=== PATIENT | female | born 1930 | race Caucasian/White ===

== ENCOUNTER 2017-05-21 15:21 | Inpatient (IN) | payer MEDICARE ==
[2017-05-21] MEDS ORDERED: Aspirin Low Dose CHEW TAB* 81 MG PO ONE (16:17)
[2017-05-21] MEDS ORDERED: NS 0.9% 1000 ML* 1,000 ML IV ONE (16:17)
--- NOTE | 2017-05-21 17:04 | RAD ---
Indication: Shortness of breath. Single frontal view of the chest performed at 1640 hours was reviewed. No prior study is available. No mediastinal shift is noted. Heart is of normal size and configuration. Lung east appear clear. Pacemaker leads are in place. There is likely interposed colon under the right hemidiaphragm. IMPRESSION: NO ACTIVE CARDIOPULMONARY DISEASE IS NOTED.
[2017-05-21 19:28] LABS: Hematocrit 35 % (35-47); Hemoglobin 11.4 g/dl (12.0-16.0); Mean Corpuscular HGB Conc 33 g/dl (31-36); Mean Corpuscular Hemoglobin 31 pg (27-31); Mean Corpuscular Volume 95 fL (80-97); Mean Platelet Volume 7 um3 (7.4-10.4); Red Blood Count 3.69 10^6/ul (4.0-5.4); Red Cell Distribution Width 18 % (10.5-15); White Blood Count 9.4 10^3/ul (3.5-10.8)
[2017-05-21 19:44] LABS: Albumin 3.1 g/dL (3.2-5.2); BUN/Creatinine Ratio 28.7 (8-20); Calcium 9.7 mg/dL (8.6-10.3); EGFR African American 72.1 (>60); EGFR Non-African American 56.1 (>60); Globulin 2.8 g/dL (2-4); Potassium 3.2 mmol/L (3.5-5.0); Total Bilirubin 1.1 mg/dL (0.2-1.0); Total Protein 5.9 g/dL (6.4-8.9)
[2017-05-21 19:48] LABS: Troponin I 0.05 ng/mL (<0.04)
[2017-05-21 20:11] LABS: Erythrocyte Sed Rate 16 mm/Hr (0-40)
[2017-05-21 20:17] LABS: TSH (Thyroid Stimulating Horm) 14.01 mcIU/mL (0.34-5.60)
[2017-05-21 20:29] LABS: C Reactive Protein 22.02 mg/L (< 5.00)
[2017-05-21] MEDS ORDERED: Potassium Chloride LIQUID* 20 MEQ PACKET PO ONE (20:56)
[2017-05-21] MEDS ORDERED: Ondansetron INJ* 2 MG/ML VIAL IV PRN (21:12)
[2017-05-21] MEDS ORDERED: Acetaminophen TAB* 325 MG PO PRN (21:12)
[2017-05-21 21:31] LABS: Free T3 2.9 pg/mL (2.5-3.9)
[2017-05-21 21:32] LABS: Free T4 0.6 ng/dL (0.61-1.12)
--- NOTE | 2017-05-21 23:21 | ED ---
Eli Reyes Seung-Jae, scribed for Nathalie Sofia MD on 05/21/17 at 1727 . Complex/Multi-Sys Presentation - HPI Summary HPI Summary: An 87 y/o F presents to ED with c/o worsening weakness onset s/p RLE surgery on 01/20/17. Pt had broken femur, had sravanthi replacement. Released from rehab on . Per family, pt has "gone downhill since" surgery. Pt lives in [place], was driven to [place] yesterday to live with family while she recoups. Pt ambulated with a walker before femur break. This AM, pt was seen by visiting nurse, who noted hypoxia, low blood sugar, low pulse, and bilat pedal edema with weeping on LLE. Family spoke to Dr. Babcock, referred them to ED. Pt denies pain, n/v, fever at bedside. 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 PMHx: CHF, Lyme's Disease, and hypotension. - History Of Current Complaint Chief Complaint: EDWeakness Hx Obtained From: Patient, Family/Ditch Worker - son and daughter in law Onset/Duration: Gradual Onset, Lasting Days - worse since yesterday, Lasting Weeks - acute on chronic, Still Present Timing: Constant Severity Currently: Moderate Severity Initially: Severe Character: Unable To Describe Alleviating Factor(s): Leg edema improved with raising of leg. Associated Signs And Symptoms: Positive: Weakness, SOB, Edema, Other - see HPI for pert pos. Negative: Nausea, Vomiting, Fever Related History: Recent Hospitalization - Allergies/Home Medications Allergies/Adverse Reactions: Allergies Allergy/AdvReac Type Severity Reaction Status Date / Time Penicillins Allergy Rash And Verified 05/21/17 15:32 Itching Home Medications: Home Medications Bupropion XL* [Wellbutrin XL *] 150 mg PO DAILY 05/21/17 [History Confirmed 05/02] Coenzyme Q10 (Ubidecarenone) [Co-Enzyme Q-10] 30 mg PO 05/21/17 [History] Liothyronine TAB* [Cytomel TAB*] 5 mcg PO BID 05/21/17 [History Confirmed ] Mirtazapine TAB* [Remeron TAB*] 15 mg PO BEDTIME 05/21/17 [History Confirmed 05/02] Ranitidine HCl 300 mg PO 05/21/17 [History] Rivaroxaban TAB(*) [Xarelto 10 mg (*)] 05/21/17 [History] Spironolactone TAB* [Aldactone TAB*] 25 mg PO SEE INSTRUCTIONS 05/21/17 [ History Confirmed 05/21/17] PMH/Surg Hx/FS Hx/Imm Hx Previously Healthy: No Endocrine/Hematology History: Reports: Hx Thyroid Disease - hypothyroid Cardiovascular History: Reports: Hx Congestive Heart Failure, Hx Hypotension GI History: Reports: Hx Gastroesophageal Reflux Disease Psychiatric History: Reports: Hx Depression - Cancer History Cancer Type, Location and Year: Breast Cancer - Surgical History Surgery Procedure, Year, and Place: Right Knee replaced. Infectious Disease History: No Infectious Disease History: Reports: History Other Infectious Disease - Lyme Disease Denies: Traveled Outside the [place] in Last 30 Days - Family History Known Family History: Positive: Renal Disease Negative: Diabetes - Social History Lives: With Family Alcohol Use: None Substance Use Type: Reports: None Smoking Status (MU): Never Smoked Tobacco Review of Systems Positive: Other - pos: low blood sugar. Negative: Fever Positive: Other - pos: low pulse Positive: Other - pos: hypoxia Negative: Vomiting, Nausea Positive: Edema - in both of LE with weeping Positive: Other - edema, weeping lesion LLE, dressing on right lat thigh Positive: Weakness Psychological: Normal All Other Systems Reviewed And Are Negative: Yes Physical Exam Triage Information Reviewed: Yes Vital Signs On Initial Exam: Initial Vitals Temp Pulse Resp BP Pulse Ox 97 F 121 20 109/58 100 05/21/17 15:25 05/21/17 15:25 05/21/17 15:25 05/21/17 15:25 05/21/17 15:25 Vital Signs Reviewed: Yes Appearance: Positive: No Pain Distress, Well-Nourished, Ill-Appearing Skin: Positive: Warm, Skin Color Reflects Adequate Perfusion Head/Face: Positive: Normal Head/Face Inspection Eyes: Positive: Conjunctiva Clear ENT: Positive: Normal ENT inspection Neck: Positive: Supple, Nontender Respiratory/Lung Sounds: Positive: Breath Sounds Present, Rales - right lower lobe, Rhonchi Cardiovascular: Positive: RRR, Pulses are Symmetrical in both Upper and Lower Extremities, Leg Edema Left, Leg Edema Right. Negative: Murmur Abdomen Description: Positive: Nontender, Soft. Negative: McBurney's Point Tenderness, Peritoneal Signs, Pulsatile Mass Bowel Sounds: Positive: Present Musculoskeletal: Positive: Strength/ROM Intact, Edema Left, Edema Right Neurological: Positive: Sensory/Motor Intact, Alert, Oriented to Person Place, Time. Negative: Facial Droop, Focal Deficit @, Slurred Speech Psychiatric: Positive: Normal Diagnostics - Vital Signs Vital Signs Temp Pulse Resp BP Pulse Ox 05/21/17 15:31 97 F 121 22 109/58 100 05/21/17 15:25 97 F 121 20 109/58 100 - Laboratory Lab Results: Lab Results 05/21/17 05/21/17 05/21/17 Range/Units 19:20 19:20 19:20 WBC 9.4 (3.5-10.8) 10^3/ul RBC 3.69 L (4.0-5.4) 10^6/ul Hgb 11.4 L (12.0-16.0) g/dl Hct 35 (35-47) % MCV 95 (80-97) fL MCH 31 (27-31) pg MCHC 33 (31-36) g/dl RDW 18 H (10.5-15) % Plt Count 365 (150-450) 10^3/ul MPV 7 L (7.4-10.4) um3 Neut % (Auto) 74.2 (38-83) % Lymph % (Auto) 16.7 L (25-47) % [place] % (Auto) 8.0 (1-9) % Eos % (Auto) 0.4 (0-6) % Baso % (Auto) 0.7 (0-2) % Absolute Neuts (auto) 7.0 (1.5-7.7) 10^3/ul Absolute Lymphs (auto) 1.6 (1.0-4.8) 10^3/ul Absolute Monos (auto) 0.8 (0-0.8) 10^3/ul Absolute Eos (auto) 0 (0-0.6) 10^3/ul Absolute Basos (auto) 0.1 (0-0.2) 10^3/ul Absolute Nucleated RBC 0 10^3/ul Nucleated RBC % 0 ESR 16 (0-40) mm/Hr INR (Anticoag Therapy) (0.89-1.11) APTT (26.0-36.3) seconds D-Dimer, Quantitative (Less Than 230) ng/mL Sodium 127 L (133-145) mmol/L Potassium 3.2 L (3.5-5.0) mmol/L Chloride 91 L (101-111) mmol/L Carbon Dioxide 24 (22-32) mmol/L Anion Gap 12 H (2-11) mmol/L BUN 27 H (6-24) mg/dL Creatinine 0.94 (0.51-0.95) mg/dL Est GFR ( Amer) 72.1 (>60) Est GFR (Non-Af Amer) 56.1 (>60) BUN/Creatinine Ratio 28.7 H (8-20) Glucose 83 (70-100) mg/dL Lactic Acid 1.2 (0.5-2.0) mmol/L Calcium 9.7 (8.6-10.3) mg/dL Magnesium 2.0 (1.9-2.7) mg/dL Total Bilirubin 1.10 H (0.2-1.0) mg/dL AST 29 (13-39) U/L ALT 14 (7-52) U/L Alkaline Phosphatase 82 (34-104) U/L Total Creatine Kinase 41 (10-223) U/L CK-MB (CK-2) 2.6 (0.6-6.3) ng/mL Troponin I 0.05 H* (<0.04) ng/mL C-Reactive Protein 22.02 H (< 5.00) mg/L B-Natriuretic Peptide ( - 100) pg/mL Total Protein 5.9 L (6.4-8.9) g/dL Albumin 3.1 L (3.2-5.2) g/dL Globulin 2.8 (2-4) g/dL Albumin/Globulin Ratio 1.1 (1-3) TSH 14.01 H (0.34-5.60) mcIU/mL Free T4 0.60 L (0.61-1.12) ng/dL Free T3 2.90 (2.5-3.9) pg/mL 05/21/17 05/21/17 Range/Units 19:20 19:20 WBC (3.5-10.8) 10^3/ul RBC (4.0-5.4) 10^6/ul Hgb (12.0-16.0) g/dl Hct (35-47) % MCV (80-97) fL MCH (27-31) pg MCHC (31-36) g/dl RDW (10.5-15) % Plt Count (150-450) 10^3/ul MPV (7.4-10.4) um3 Neut % (Auto) (38-83) % Lymph % (Auto) (25-47) % [place] % (Auto) (1-9) % Eos % (Auto) (0-6) % Baso % (Auto) (0-2) % Absolute Neuts (auto) (1.5-7.7) 10^3/ul Absolute Lymphs (auto) (1.0-4.8) 10^3/ul Absolute Monos (auto) (0-0.8) 10^3/ul Absolute Eos (auto) (0-0.6) 10^3/ul Absolute Basos (auto) (0-0.2) 10^3/ul Absolute Nucleated RBC 10^3/ul Nucleated RBC % ESR (0-40) mm/Hr INR (Anticoag Therapy) 1.14 H (0.89-1.11) APTT 30.9 (26.0-36.3) seconds D-Dimer, Quantitative 280 H (Less Than 230) ng/mL Sodium (133-145) mmol/L Potassium (3.5-5.0) mmol/L Chloride (101-111) mmol/L Carbon Dioxide (22-32) mmol/L Anion Gap (2-11) mmol/L BUN (6-24) mg/dL Creatinine (0.51-0.95) mg/dL Est GFR ( Amer) (>60) Est GFR (Non-Af Amer) (>60) BUN/Creatinine Ratio (8-20) Glucose (70-100) mg/dL Lactic Acid (0.5-2.0) mmol/L Calcium (8.6-10.3) mg/dL Magnesium (1.9-2.7) mg/dL Total Bilirubin (0.2-1.0) mg/dL AST (13-39) U/L ALT (7-52) U/L Alkaline Phosphatase (34-104) U/L Total Creatine Kinase (10-223) U/L CK-MB (CK-2) (0.6-6.3) ng/mL Troponin I (<0.04) ng/mL C-Reactive Protein (< 5.00) mg/L B-Natriuretic Peptide 226 H ( - 100) pg/mL Total Protein (6.4-8.9) g/dL Albumin (3.2-5.2) g/dL Globulin (2-4) g/dL Albumin/Globulin Ratio (1-3) TSH (0.34-5.60) mcIU/mL Free T4 (0.61-1.12) ng/dL Free T3 (2.5-3.9) pg/mL Result Diagrams: 05/21/17 19:20 05/21/17 19:20 Lab Statement: Any lab studies that have been ordered have been reviewed, and results considered in the medical decision making process. - Radiology Chest XR Xray Interpretation: No Acute Changes - No active cardiopulmonary disease is noted. Radiology Interpretation Completed By: Radiologist - EKG 1 Cardiac Rate: Other Rate - 100% paced 111bpm EKG Interpretation: Taken at 16:10 Re-Evaluation - Re-Evaluation 1 Re-Evaluation Time: 17:50 Change: Unchanged Comment: No change in clinical status, and difficulty obtaining labs due to swelling. 2 Re-Evaluation Time: 19:55 Change: Unchanged Comment: Discussing results, abnormal trop and admission. Continued fatigue no CP Complex Multi-Symp Course/Dx Assessment/Plan: Pt is an 87 y/o F presenting with acute on chronic weakness. Pert PMHx: RLE fx on 01/20/17, sravanthi placed. Per family, pt has has "failed to thrive" since surgery. Associated sx noted by visiting nurse today: hypoxia, decreased pulse, low blood sugar, weeping pedal edema. Denies pain, n/v, fever at bedside. 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 PMHx: CHF , Lyme's Disease, and hypotension. troponin elevated, no aspirin given as pt was advised no ASA. Consulted with hospitalist, will admit. - Diagnoses Differential Diagnoses/HQI/PQRI: Cardiac Ischemia, Sepsis, Other - CHF. DVT, PE Provider Diagnoses: Elevated troponin I level, Weakness generalized, Edema leg, Hyponatremia, Hypokalemia - Physician Notifications Discussed Care Of Patient With: Samantha Mata - hospitalist Time Discussed With Above Provider: 17:00 Instructed by Provider To: Admit As Inpatient Discharge - Discharge Plan Condition: Stable Disposition: ADMITTED [facility] Consult Consult: 19:51 Dr. Pang hospitalist will admit patient. The documentation as recorded by the Eli adam Seung-Jae accurately reflects the service I personally performed and the decisions made by , Nathalie Sofia MD.
[2017-05-21] MEDS: Liothyronine TAB* 5 MCG PO SCH (23:29)
[2017-05-21] MEDS: Rivaroxaban TAB(*) 20 MG TAB PO SCH (23:29)
[2017-05-21] MEDS: Mirtazapine TAB* 15 MG PO SCH (23:29)
[2017-05-21] MEDS: Famotidine TAB* 20 MG PO SCH (23:30)
--- NOTE | 2017-05-22 02:09 | HP ---
MEDICINE HISTORY AND PHYSICAL: DATE OF ADMISSION: 05/21/17 ATTENDING PHYSICIAN: Billy Pang MD *(as dictated by Jeanine Golden NP) PRIMARY CARE PHYSICIAN: Dr. Lenny Chi, [place], [place]. CHIEF COMPLAINT: Increased weakness, low O2 sat at home and increased fluid in legs. HISTORY OF PRESENT ILLNESS: Ms. Thibodeaux is an 87-year-old female who was brought in by her family for evaluation of increased lower extremity swelling, increased weakness, and reported low O2 sat at home. Ms. Thibodeaux recently moved to [place] with her son and [id number], having previously lived in [place], [place]. In January 2017, the patient sustained a right femur fracture, underwent surgical correction and was placed in [facility] at [place]. She stayed there for several weeks and was recently discharged from rehab on 05/15/17. Most of the history is provided by the patient's family members, Raad Thibodeaux, the patient's son and Elba Thibodeaux, the patient's [id number]. Elba reports that the patient has been in and out of the hospital while in the rehab for various reasons. Towards the end of her stay at the rehab, the patient had a noted decline in her status, has become progressively weaker and had been opting out of PT and OT at that time. Additionally, the patient has inconsistently been taking her medications due to difficulty with swallowing. The patient was diagnosed with cervical osteophytes , which is making it difficult for her to swallow pills and food and drink. Per the family, the patient was recommended to be on mechanical soft and pureed textures, but refused these as well as refused having her pills crushed. Over the past several months, the patient has lost approximately 15 pounds per the family. Family was concerned and had the patient moved in here with them to [place]. The patient moved in on Thursday and was signed on with home nursing services over the weekend. Both the physical therapist and the nurse came today and both showed concern for the patient having noted a low oxygen saturation, as well as increased leg swelling and low pulse rate. Additionally, the family reports increased weeping to the upper and lower extremities to the upper right and bilateral lower extremities. Both the patient and the family denied any recent fevers or cold or flu symptoms. I do report that the patient has decreased p.o. intake and episodes of choking secondary to the cervical osteophytes. The patient denies chest pain , does endorse chronic lower extremity edema which has worsened as of recently. She has a nonproductive cough and persistent postnasal drip, but she denies any shortness of breath or hemoptysis. She denies abdominal pain, nausea, vomiting, diarrhea or constipation, with her last bowel movement being yesterday and stating that it was regular for her. She denies any dysuria or hematuria. She denies any focal weakness, sensory loss. No new tingling or numbness. No new visual or hearing complaints. Again, the patient has dysphagia from the cervical osteophyte, no other acute complaints. Here in the ER, the patient has been evaluated and her labs showed concern for sodium 127, potassium 3.2, and BUN 27. The patient's troponin was indeterminate at 0.05. CRP is mildly elevated at 22.02 and TSH of 14.01. During my evaluation of the patient, she is very drowsy and at some point complains of burning in her rectum, but otherwise does not offer any other acute complaints. PAST MEDICAL HISTORY: Significant for: 1. History of congestive heart failure. 2. History of Lyme disease over 25 years ago. 3. Remote history of breast cancer over 25 years ago. 4. Cervical osteophytes causing progressive worsening dysphagia. 5. ICD pacemaker placement. 6. Right humerus fracture in January 2017 with subsequent rehab. 7. Hypothyroidism. 8. Depression. 9. GERD. 10. Hypotension. 11. Hard of hearing. PAST SURGICAL HISTORY: 1. Left hip replacement. 2. History of right knee replacement. 3. Removal of ovarian mass in fall of 2017. FAMILY HISTORY: Reviewed and noncontributory. SOCIAL HISTORY: The patient denies any history of tobacco, alcohol or illicit drug use. She is currently living with her family. Her son, Raad Thibodeaux, is the healthcare proxy and he can be reached at [phone]. REVIEW OF SYSTEMS: As per HPI. PHYSICAL EXAMINATION GENERAL: Ms. Thibodeaux is an elderly female who is lying in ED stretcher. She is drowsy and arousable and frail appearing. Does not appear to be in any acute distress. VITAL SIGNS: Temperature 97 temporal, heart rate 114, blood pressure 96/58 manual, respiratory rate 16 and saturation is 100% on room air. HEENT: Head is atraumatic, normocephalic. Face is symmetrical. Sclerae are anicteric. Extraocular movements are intact. Oral mucosa appears somewhat dry. NECK: Supple with full range of motion, no JVD noted. RESPIRATORY: Lungs have coarse sounding and diminished. I do not appreciate any crackles at this time or any other adventitious lung sounds. No accessory muscle use. CARDIAC: S1 and S2 heart sounds. Regular rate and rhythm. No murmurs, rubs or gallops. The patient has 3+ pitting weeping edema to the bilateral lower extremities. Distal pulses are 1+. ABDOMEN: Soft, nontender, nondistended. Bowel sounds are present times all 4 quadrants and are hyperactive. MUSCULOSKELETAL: The patient is able to move all extremities and appears to have average range of motion. There is no clubbing or cyanosis noted. SKIN: The patient has multiple skin tears and abrasions notably to the right upper arm as well as a healing hematoma and skin tear to the left pinto. The patient has deep purple tissue injury to the coccyx near the rectum and to both bilateral heels which are boggy in appearance that is concerning for deep tissue injury and is unstageable at this time. The patient's skin is very fragile and she has multiple ecchymotic areas. NEURO: The patient is profoundly hard of hearing, but when alert, is oriented to self, place, and time. She does follow commands. She is able to move all extremities. Sensation is intact to light touch to the bilateral lower extremities. PSYCH: Her affect is appropriate. LABORATORY DATA AND DIAGNOSTIC STUDIES: CBC: WBC 9.4, hemoglobin 11.4, hematocrit 35, platelet count 365,000. ESR 16. Sodium 127, potassium 3.2, chloride 91, carbon dioxide 24, BUN 27, creatinine 0.94, glucose 83, lactic acid 1.2, calcium 9.7, magnesium 2.0, total bilirubin 1.1, AST 29, ALT 14, alk phos 82, total CK 41, CK-MB 2.6, troponin 0.05. CRP 22.02, BNP 226, total protein 5.9, albumin 3.1, TSH is 14.01. EKG shows concern for atrial-sensed ventricular-paced rhythm, rate 111. Chest x-ray shows no active cardiopulmonary disease. ASSESSMENT AND PLAN: Ms. Thibodeaux is an 87-year-old female who presents today with concern for lower extremity edema, failure to thrive, hyponatremia, mild renal insufficiency and elevated troponins. She will be admitted to the telemetry unit. Plan is as follows: 1. Suspected congestive heart failure exacerbation. Appears to be mild and likely secondary to poor medical management as the patient reportedly inconsistently takes her medications, often secondary to difficulty swallowing. The patient does have significant lower extremity edema and she is ordered Christophe wrap to the lower extremities from foot to thigh to help mobilize some of this fluid. We will start 1500 mL free water restriction. In addition, the patient is hyponatremic and I suspect that she is intravascularly dry. However , I am hesitant to give her Lasix to continue causing dehydration as the patient does have a poor nutritional status and will likely continue the third space fluid if we can give IV fluids. At this time, I will hope to attempt mobilizing this fluid with compression and then perhaps, we can try to give the patient IV Lasix in the future. We will maintain her on strict I's and O's and daily weights. I have requested records from her willow machine operator and previous rehab, but we will obtain a transthoracic echocardiogram here in order to see what the patient's heart function is and see if there is any other concern for valvular abnormalities or any wall motion abnormalities. The patient is ordered a low sodium diet. 2. Hyponatremia, suspect secondary to congestive heart failure, renal insufficiency, fluid overload. The patient is on a mild fluid restriction. We will continue to trend. 3. Elevated BUN. I suspect some mild dehydration. Plan to use compression to the lower extremities to help mobilize some of the fluid that is trapped in the interstitial space. We may consider giving some light IV fluids as the patient' s renal function continues to decline, but at this time I would like to hold off on IV fluids and try to use compression in order to help with the significant edema the patient has to her lower extremities. 4. Elevated troponin. I suspect some aspect of demand ischemia. I also do not know what the patient's baseline is, though hopefully we may be able to determine this once we are able to get records from her primary willow machine operator back in [place]. The patient's troponin is 0.05. We will continue to trend these and monitor. 5. Elevated TSH. We will check a free T4 and free T3. I suspect that the patient is likely not therapeutic with her thyroid replacement as she has missed many doses of her medications and it sounds like she does not consistently take any medication that is ordered for her. 6. Lower extremity edema. The patient is on Xarelto, but she has missed doses of this as well, so there is concern that she may have reached a hypercoagulable state and may be at risk for blood clots, so we will check ultrasound of her lower extremities as well as the right upper arm significantly swollen. Restart Xarelto at this time, but we may need to reevaluate the use of this medication as the patient is unable to swallow actively and take her medications as prescribed. 7. Dysphagia secondary to cervical osteophytes. Requested speech eval to asses the patient's needs in terms of swallowing or p.o. intake and medication compliance. 8. Failure to thrive. The patient has reported a significant weight loss over the past several weeks. Nutrition consult requested. 9. Skin integrity. The patient has multiple wounds and areas of concern for deep tissue injury that may represent underlying tissue and may eventually become pressure ulcers. The patient has been ordered air mattress, turning and positioning, and heel elevation and we have requested a wound consult in addition to this. 10. History of hypotension. The patient appears to be within her baseline and is asymptomatic. We will continue to watch this closely and hold off on any pressors at this time. 11. History of gastroesophageal reflux disease. Continue ranitidine. 12. Progressive weakness. Requested PT/OT evaluations and encourage ambulation. 13. DVT prophylaxis. She is on Xarelto. The patient is unable to take this. We will switch her to subcu heparin. 14. Code status. I discussed this with the family. The patient has indicated that she wishes to be a full code at this time and recently had this conversation as of this week. At this time, the family wishes to pursue treatment for the patient's chronic issues, so while I feel that the patient would benefit from palliative care consult, I will withhold this at this time and attempt treatment before pursuing palliative care per the family's wishes. TIME SPENT: Time spent on this admission was approximately 70 minutes, more than half the time was spent [id number] with the patient and family obtaining history and physical, performing physical examination, and reviewing the plan of care. Plan of care was also reviewed with my attending, Dr. Pang, who is in agreement. JEANINE GOLDEN NP [id number]/[facility] #: [id number] MTDBo
[2017-05-22 05:25] LABS: Add Diff/Slide Review? Slide Review Added; Comments Flag Yes; Hematocrit 29 % (35-47); Hemoglobin 9.5 g/dl (12.0-16.0); Mean Corpuscular HGB Conc 33 g/dl (31-36); Mean Corpuscular Hemoglobin 31 pg (27-31); Mean Corpuscular Volume 94 fL (80-97); Mean Platelet Volume 7 um3 (7.4-10.4); Red Blood Count 3.05 10^6/ul (4.0-5.4); Red Cell Distribution Width 18 % (10.5-15); White Blood Count 9.3 10^3/ul (3.5-10.8)
[2017-05-22 05:36] LABS: BUN/Creatinine Ratio 33.3 (8-20); Calcium 8.8 mg/dL (8.6-10.3); EGFR African American 85.6 (>60); EGFR Non-African American 66.6 (>60)
[2017-05-22 05:44] LABS: Troponin I 0.04 ng/mL (<0.04)
--- NOTE | 2017-05-22 07:10 | RAD ---
INDICATION: Lower extremity erythema and edema. COMPARISON: There are no prior studies available for comparison. TECHNIQUE: Multiple real-time, color flow and Doppler tracings of both lower extremities were obtained. FINDINGS: The common femoral, femoral, profunda femoral and popliteal veins all demonstrate normal compressibility, augmentation with compression and phasic response with respiration. Examination of the calves was limited. The peroneal veins were not seen on either side. There is diffuse edema. The posterior tibial veins demonstrate normal compressibility and augmentation with compression. IMPRESSION: LIMITED EXAM OF THE CALVES, NO EVIDENCE FOR DEEP VENOUS THROMBOSIS.
--- NOTE | 2017-05-22 09:32 | ECHO ---
Patient: ANDI LOPEZ [facility] Rec#: [id number] : 1930 Date: 05/22/2017 Age: 87y Height: 152.4 cm / 60.0 in Weight: 50.8 kg / 112.0 lbs Sex: F BSA: 1.46 Room#: 434 Admit Date#: 05/21/2017 Type: Inpatient Referring: Nenita Gibbs Reading: Patrice Stout MD Dairy Associate: Fiordaliza Ferguson RD Transthoracic Echocardiogram Indication: CHF BP: 109/63 HR: 107 Rhythm: Paced Indications Congestive Heart Failure Findings History: S/P AICD, CHF, hypotension, Lyme disease 25+ years ago. Technical Comments: The study quality is fair. The study is technically limited due to patient body habitus. Completed at 0900. Left Ventricle: The left ventricular chamber size is decreased. Global left ventricular wall motion and contractility are within normal limits. There is normal left ventricular systolic function. The estimated ejection fraction is 55-60%. There is abnormal ventricular septal wall motion consistent with right ventricular pacemaker. There is no consistent Doppler evidence of clinically significant diastolic dysfunction. Left Atrium: The left atrial chamber size is normal. Right Ventricle: Moderator Band present. The right ventricular cavity size is normal. The right ventricle wall thickness is mildly increased. The right ventricular global systolic function is normal. A pacemaker wire is visualized in the right ventricle. Right Atrium: The right atrial cavity size is normal. A pacemaker wire is visualized in the right atrium. Aortic Valve: The aortic valve structure is not well visualized. There is no evidence of aortic regurgitation. There is mild to moderate aortic stenosis. Highest aortic valve velocity was acquired with Pedoff in apical position. Mitral Valve: There is mitral annular calcification. The mitral valve leaflets are mildly thickened. There is mild to moderate mitral regurgitation. Tricuspid Valve: The tricuspid valve leaflets are normal. There is moderate tricuspid regurgitation. The right ventricular systolic pressure is estimated at 42 mmHg. There is evidence of mild pulmonary hypertension. Pulmonic Valve: The pulmonic valve appears normal. There is a trace pulmonic regurgitation. There is no pulmonic stenosis. Pericardium: There is no significant pericardial effusion. Aorta: There is no dilatation of the ascending aorta. There is no dilatation of the aortic arch. There is no dilation of the aortic root. Pulmonary Artery: The main pulmonary artery appears normal. Venous: The inferior vena cava appears normal in size. There is an approximate 50% respiratory change in the inferior vena cava dimension. Conclusions There is normal left ventricular systolic function. The estimated ejection fraction is 55-60%. Global left ventricular wall motion and contractility are within normal limits. The left ventricular chamber size is decreased. There is mild to moderate aortic stenosis. There is mild to moderate mitral regurgitation. There is moderate tricuspid regurgitation. There is evidence of mild pulmonary hypertension. There is no prior echocardiogram available to compare with at this time. Measurements Name Value Normal Range RVIDd (AP) 2D 2.4 cm (0.9 - 2.6) RVDdMajor (2D) 3.4 cm (2.2 - 4.4) RVAW (2D) 0.53 cm (0.2 - 0.5) RAd ISD 4CH 4.2 cm (3.4 - 4.9) RA (A4C)W 3 cm (2.9 - 4.6) IVSd (2D) 1 cm (0.6 - 1) LVPWd (2D) 1 cm (0.6 - 1) LVIDd (2D) 3.3 cm (3.6 - 5.4) LVIDs (2D) 2.75 cm - LV FS (2D) 16 % (25 - 45) Aortic Annulus 1.7 cm (1.4 - 2.6) Ao root diameter (2D) 2.1 cm (2.1 - 3.5) Ascending Ao 3.2 cm (2.1 - 3.4) Aortic arch 3.1 cm (1.8 - 3.4) LA dimension (AP) 2D 3.2 cm (2.3 - 3.8) LAd ISD 4CH 4.6 cm (2.9 - 5.3) LA ISD 4CH W 3.6 cm (2.5 - 4.5) Name Value Normal Range LA ESV SP 4CH (A/L) 44 ml - LA ESV SP 2CH (A/L) 39 ml - LA ESV BP (A/L) 42 ml - LA ESV BP (A/L) index 28.79 ml/m2 - LA ESV SP 4CH (MOD) 40 ml - LA ESV SP 2CH (MOD) 36 ml - Name Value Normal Range MV E-wave Vmax 1.4 m/sec - MV deceleration time 158.4 msec - LV septal e' Vmax 0.06 m/sec - LV lateral e' Vmax 0.07 m/sec - LV E:e' septal ratio 23.33 ratio - LV E:e' lateral ratio 20 ratio - Name Value Normal Range AV Vmax 2.54 m/sec - AV VTI 43.2 cm - AV peak gradient 25.83 mmHg - AV mean gradient 16.9 mmHg - LVOT diameter 1.9 cm - LVOT Vmax 0.94 m/sec - LVOT VTI 18.28 cm - LVOT peak gradient 3.54 mmHg - LVOT mean gradient 2.44 mmHg - DOI (VTI) 0.42 ratio - RUSSEL (continuity Vmax) 1.05 cm2 - RUSSEL (continuity VTI) 1.2 cm2 - MANUEL Vmax 0.75 m/sec - Name Value Normal Range TR Vmax 2.9 m/sec - TR peak gradient 34 mmHg - RAP 8 mmHg - RVSP 42 mmHg - IVC diameter 1.4 cm - Name Value Normal Range PV Vmax 0.8 m/sec - PV peak gradient 2.62 mmHg -
[2017-05-22] MEDS: BuPROPion XL* 150 MG TAB.XL PO SCH (10:59)
[2017-05-22] MEDS: Rivaroxaban TAB(*) 20 MG TAB PO SCH (10:59)
[2017-05-22] MEDS: Liothyronine TAB* 5 MCG PO SCH ×2 (10:59→20:50)
--- NOTE | 2017-05-22 11:44 | RAD ---
HISTORY: Erythema and edema of the right upper extremity COMPARISON: None. TECHNIQUE: Multiple transverse and longitudinal ultrasound images were obtained of the veins of the right lower extremity upper extremity using grayscale, color Doppler, and spectral Doppler imaging with and without compression and with augmentation. FINDINGS: VEINS: The axillary, brachial, basilic and cephalic are compressible throughout their course, with normal flow on color Doppler imaging and normal response to augmentation on spectral Doppler imaging. The subclavian vein exhibits appropriate augmentation and phasicity. The radial and ulnar veins are compressible. Evidence of adequate flow is identified in the right internal jugular and subclavian vein as well. SOFT TISSUES: Grossly normal. IMPRESSION: No sonographic evidence of deep vein thrombosis.
--- NOTE | 2017-05-22 13:30 | RAD ---
INDICATION: Dysphagia. COMPARISON: There are no prior studies available for comparison. Technique: A swallowing function test was performed in conjunction with the speech pathologist. The patient was fluoroscopically lateral projection while swallowing thin, thick liquids and pudding. Approximately 1.7 minutes of intermittent fluoroscopic guidance were used during the exam. Findings: There was a large amount of residual material after each swallow present at the base of the tongue in the vallecula. The patient aspirated both thin and thick liquids although did better with the thick liquids. The patient had a weak cough and also had difficulty clearing residual contrast after each swallow. IMPRESSION: SEVERE OROPHARYNGEAL DYSPHAGIA. CPT II Codes: 6045F
[2017-05-22] MEDS ORDERED: NS 0.9% 1000 ML* 1,000 ML IV SCH (15:30)
--- NOTE | 2017-05-22 15:38 | PN ---
Subjective Date of Service: 05/22/17 Interval History: Interactive but not very engaged. Responds "I don't know honey" to many of questions but is oriented x 3. Denies pain, SOB, N/B, LH, CP Objective Active Medications: Acetaminophen (Tylenol Tab*) 650 mg PO Q4H PRN PRN Reason: FEVER/PAIN Bupropion HCl (Wellbutrin Xl *) 150 mg PO DAILY [facility] PRN Reason: Protocol Last Admin: 05/22/17 10:59 Dose: 150 mg Famotidine (Pepcid Tab*) 20 mg PO BEDTIME [facility] Last Admin: 05/21/17 23:30 Dose: 20 mg Sodium Chloride (Ns 0.9% 1000 Ml*) 1,000 mls @ 100 mls/hr IV PER RATE [facility] Stop: 05/23/17 01:29 Liothyronine Sodium (Cytomel Tab*) 5 mcg PO BID [facility] Last Admin: 05/22/17 10:59 Dose: 5 mcg Mirtazapine (Remeron Tab*) 15 mg PO BEDTIME [facility] Last Admin: 05/21/17 23:29 Dose: 15 mg Ondansetron HCl (Zofran Inj*) 4 mg IV Q6H PRN PRN Reason: NAUSEA/VOMITING Rivaroxaban (Xarelto (*)) 20 mg PO DAILY [facility] Last Admin: 05/22/17 10:59 Dose: 20 mg Vital Signs 05/21/17 05/22/17 05/22/17 21:52 03:39 08:00 Temperature 97.5 F 97.5 F Pulse Rate 115 110 Respiratory 18 16 18 Rate Blood Pressure 105/49 109/63 (mmHg) O2 Sat by Pulse 100 100 Oximetry 05/22/17 10:00 Temperature 97.5 F Pulse Rate 103 Respiratory 18 Rate Blood Pressure 95/46 (mmHg) O2 Sat by Pulse 99 Oximetry Oxygen Devices in Use Now: None Appearance: sitting up in bed, NAD Eyes: No Scleral Icterus, PERRLA Ears/Nose/Mouth/Throat: - - dry MM Neck: NL Appearance and Movements; NL JVP Respiratory: Symmetrical Chest Expansion and Respiratory Effort, Clear to Auscultation Cardiovascular: - - tachy Abdominal: NL Sounds; No Tenderness; No Distention, No Hepatosplenomegaly Extremities: - - 2+ edema b/l LE, 1+ b/l uppers Neurological: Alert and Oriented x 3 Result Diagrams: 05/22/17 05:16 05/22/17 05:16 Additional Lab and Data: Lab Results 05/21/17 05/21/17 05/21/17 Range/Units 19:20 19:20 19:20 WBC 9.4 (3.5-10.8) 10^3/ul RBC 3.69 L (4.0-5.4) 10^6/ul Hgb 11.4 L (12.0-16.0) g/dl Hct 35 (35-47) % MCV 95 (80-97) fL MCH 31 (27-31) pg MCHC 33 (31-36) g/dl RDW 18 H (10.5-15) % Plt Count 365 (150-450) 10^3/ul MPV 7 L (7.4-10.4) um3 Neut % (Auto) 74.2 (38-83) % Lymph % (Auto) 16.7 L (25-47) % [place] % (Auto) 8.0 (1-9) % Eos % (Auto) 0.4 (0-6) % Baso % (Auto) 0.7 (0-2) % Absolute Neuts (auto) 7.0 (1.5-7.7) 10^3/ul Absolute Lymphs (auto) 1.6 (1.0-4.8) 10^3/ul Absolute Monos (auto) 0.8 (0-0.8) 10^3/ul Absolute Eos (auto) 0 (0-0.6) 10^3/ul Absolute Basos (auto) 0.1 (0-0.2) 10^3/ul Absolute Nucleated RBC 0 10^3/ul Nucleated RBC % 0 ESR 16 (0-40) mm/Hr INR (Anticoag Therapy) (0.89-1.11) APTT (26.0-36.3) seconds D-Dimer, Quantitative (Less Than 230) ng/mL Sodium 127 L (133-145) mmol/L Potassium 3.2 L (3.5-5.0) mmol/L Chloride 91 L (101-111) mmol/L Carbon Dioxide 24 (22-32) mmol/L Anion Gap 12 H (2-11) mmol/L BUN 27 H (6-24) mg/dL Creatinine 0.94 (0.51-0.95) mg/dL Est GFR ( Amer) 72.1 (>60) Est GFR (Non-Af Amer) 56.1 (>60) BUN/Creatinine Ratio 28.7 H (8-20) Glucose 83 (70-100) mg/dL Lactic Acid 1.2 (0.5-2.0) mmol/L Calcium 9.7 (8.6-10.3) mg/dL Magnesium 2.0 (1.9-2.7) mg/dL Total Bilirubin 1.10 H (0.2-1.0) mg/dL AST 29 (13-39) U/L ALT 14 (7-52) U/L Alkaline Phosphatase 82 (34-104) U/L Total Creatine Kinase 41 (10-223) U/L CK-MB (CK-2) 2.6 (0.6-6.3) ng/mL Troponin I 0.05 H* (<0.04) ng/mL C-Reactive Protein 22.02 H (< 5.00) mg/L B-Natriuretic Peptide ( - 100) pg/mL Total Protein 5.9 L (6.4-8.9) g/dL Albumin 3.1 L (3.2-5.2) g/dL Globulin 2.8 (2-4) g/dL Albumin/Globulin Ratio 1.1 (1-3) TSH 14.01 H (0.34-5.60) mcIU/mL Free T4 0.60 L (0.61-1.12) ng/dL Free T3 2.90 (2.5-3.9) pg/mL 05/21/17 05/21/17 Range/Units 19:20 19:20 WBC (3.5-10.8) 10^3/ul RBC (4.0-5.4) 10^6/ul Hgb (12.0-16.0) g/dl Hct (35-47) % MCV (80-97) fL MCH (27-31) pg MCHC (31-36) g/dl RDW (10.5-15) % Plt Count (150-450) 10^3/ul MPV (7.4-10.4) um3 Neut % (Auto) (38-83) % Lymph % (Auto) (25-47) % [place] % (Auto) (1-9) % Eos % (Auto) (0-6) % Baso % (Auto) (0-2) % Absolute Neuts (auto) (1.5-7.7) 10^3/ul Absolute Lymphs (auto) (1.0-4.8) 10^3/ul Absolute Monos (auto) (0-0.8) 10^3/ul Absolute Eos (auto) (0-0.6) 10^3/ul Absolute Basos (auto) (0-0.2) 10^3/ul Absolute Nucleated RBC 10^3/ul Nucleated RBC % ESR (0-40) mm/Hr INR (Anticoag Therapy) 1.14 H (0.89-1.11) APTT 30.9 (26.0-36.3) seconds D-Dimer, Quantitative 280 H (Less Than 230) ng/mL Sodium (133-145) mmol/L Potassium (3.5-5.0) mmol/L Chloride (101-111) mmol/L Carbon Dioxide (22-32) mmol/L Anion Gap (2-11) mmol/L BUN (6-24) mg/dL Creatinine (0.51-0.95) mg/dL Est GFR ( Amer) (>60) Est GFR (Non-Af Amer) (>60) BUN/Creatinine Ratio (8-20) Glucose (70-100) mg/dL Lactic Acid (0.5-2.0) mmol/L Calcium (8.6-10.3) mg/dL Magnesium (1.9-2.7) mg/dL Total Bilirubin (0.2-1.0) mg/dL AST (13-39) U/L ALT (7-52) U/L Alkaline Phosphatase (34-104) U/L Total Creatine Kinase (10-223) U/L CK-MB (CK-2) (0.6-6.3) ng/mL Troponin I (<0.04) ng/mL C-Reactive Protein (< 5.00) mg/L B-Natriuretic Peptide 226 H ( - 100) pg/mL Total Protein (6.4-8.9) g/dL Albumin (3.2-5.2) g/dL Globulin (2-4) g/dL Albumin/Globulin Ratio (1-3) TSH (0.34-5.60) mcIU/mL Free T4 (0.61-1.12) ng/dL Free T3 (2.5-3.9) pg/mL Assess/Plan/Problems-Billing Assessment: 87 yo F h/o CHF, PPM/ICD, hypothyroidism, depression, p/w LE swelling, weakness , and progressive dysphagia - Patient Problems (1) Dysphagia Comment: 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 Associated with dramatic weight loss over several months. Poor swallow function on evaluation today however no remedy to underlying cause. NPO is not a tenable solution (2) Edema Comment: TTE with mildly reduced LVEF and no evidence of diastolic HF to evidence decompensated HF pHTN on TTE could be accountable for increasing edema Appears extravascularly overloaded and intravascularly dry Wrap LE. Currently wraps are low but need to be extended above knees elevate legs strict I/O, daily weights (3) Hypothyroidism Comment: continue home med (4) Weight loss Comment: continued decline likely in part due to progressive dysphagia (5) Hyponatremia Comment: suspect hypovolemic hyponatremia 1L normal saline (6) DVT prophylaxis Comment: On xarelto but pt cannot say why. Continue and seek records
[2017-05-22] MEDS: Famotidine TAB* 20 MG PO SCH (20:50)
[2017-05-22] MEDS: Mirtazapine TAB* 15 MG PO SCH (20:50)
--- NOTE | 2017-05-22 20:51 | PN ---
Hospitalist Progress Note During rounds, this music writer was called into the patient's room by family members. Upon entering, patient was observed eating crumb cake and shrimp. Family was very distressed to hear that the patient was recommended to be NPO by speech therapy and did so poorly on her swallow eval. The patient's granddaughter is a speech therapist, who had previously explained the concern for aspiration to the other family members. However, they state that she has had this problem for months and has managed without aspirating. We reviewed the results of the video fluoroscopy. I did explain that because of her cervical osteophytes, the patient has poor oropharyngeal/swallowing strength. We discussed that the patient is at high risk to aspirate all textures and liquids due to the severity of her dysphagia and her inability to appropriately manipulate and manage foods. We discussed that the patient is at risk for silent aspiration as well, meaning that we may not know if she is aspirating at times, and thereby carries a risk for developing lung injury, such as aspiration pneumonitis or pneumonia at some point in the future. They verbalized understanding of this, but still wish to feed her. The son did state , "So she could from food going into her lungs and getting an infection if it's bad enough." I did let them know that the patient is currently ordered thickened liquids and bumpy textured food in order to provide her with some nutrition, as we recognize that the patient is already in a calorie-protein deficient state. They are concerned that she does not like this texture and has refused to eat these textures in the past. Patient and family encouraged to continue this conversation with Dr. Ya tomorrow and throughout the patient's stay, as this will guide our care and treatment of the patient. Family was able to verbalize understanding that feeding the patient extra foods from home, like cut up shrimp, melon, and cake, could place her at higher risk for aspiration. At this time, they still want to bring her food that she enjoys. They are very attentive and have the patient sitting upright and state they will let the nurses know if the patient needs help or appears to choke. Family will be available tomorrow in the afternoon. I did encourage them to call or let the nursing staff know when they are available to talk to the attending physician in order to further discuss the plan of care.
[2017-05-23 06:16] LABS: BUN/Creatinine Ratio 32.2 (8-20); EGFR African American 123.4 (>60)
[2017-05-23 06:17] LABS: Potassium 3.5 mmol/L (3.5-5.0)
[2017-05-23 07:30] LABS: Hematocrit 27 % (35-47); Hemoglobin 8.9 g/dl (12.0-16.0); Mean Corpuscular HGB Conc 33 g/dl (31-36); Mean Corpuscular Hemoglobin 31 pg (27-31); Mean Corpuscular Volume 96 fL (80-97); Mean Platelet Volume 7 um3 (7.4-10.4); Red Blood Count 2.84 10^6/ul (4.0-5.4); Red Cell Distribution Width 18 % (10.5-15); White Blood Count 6.9 10^3/ul (3.5-10.8)
[2017-05-23] MEDS: BuPROPion XL* 150 MG TAB.XL PO SCH (08:58)
[2017-05-23] MEDS: Liothyronine TAB* 5 MCG PO SCH ×2 (08:59→20:15)
[2017-05-23] MEDS: Rivaroxaban TAB(*) 20 MG TAB PO SCH (08:59)
[2017-05-23] MEDS ORDERED: NS 0.9% 1000 ML* 1,000 ML IV SCH (14:30)
--- NOTE | 2017-05-23 14:33 | PN ---
Subjective Date of Service: 05/23/17 Interval History: Seen with daughter and son in law at bedside Pt with shoulder pain after EKG for tachycardia Shoulder pain has been chronic She does ont like thick liquids nor pureed textures Objective Active Medications: Acetaminophen (Tylenol Tab*) 650 mg PO Q4H PRN PRN Reason: FEVER/PAIN Bupropion HCl (Wellbutrin Xl *) 150 mg PO DAILY [facility] PRN Reason: Protocol Last Admin: 05/23/17 08:58 Dose: 150 mg Famotidine (Pepcid Tab*) 20 mg PO BEDTIME [facility] Last Admin: 05/22/17 20:50 Dose: 20 mg Sodium Chloride (Ns 0.9% 1000 Ml*) 1,000 mls @ 100 mls/hr IV PER RATE [facility] Stop: 05/24/17 00:29 Liothyronine Sodium (Cytomel Tab*) 5 mcg PO BID [facility] Last Admin: 05/23/17 08:59 Dose: 5 mcg Mirtazapine (Remeron Tab*) 15 mg PO BEDTIME [facility] Last Admin: 05/22/17 20:50 Dose: 15 mg Ondansetron HCl (Zofran Inj*) 4 mg IV Q6H PRN PRN Reason: NAUSEA/VOMITING Vital Signs 05/22/17 05/22/17 05/22/17 15:13 19:19 20:00 Temperature 96.5 F 97.8 F Pulse Rate 109 110 Respiratory 18 17 17 Rate Blood Pressure 94/50 91/45 (mmHg) O2 Sat by Pulse 99 100 Oximetry 05/22/17 05/23/17 05/23/17 23:40 00:00 03:29 Temperature 98.2 F 98.2 F 97.7 F Pulse Rate 109 109 107 Respiratory 16 16 16 Rate Blood Pressure 94/39 94/39 94/45 (mmHg) O2 Sat by Pulse 97 97 95 Oximetry 05/23/17 05/23/17 08:00 11:03 Temperature Pulse Rate 99 Respiratory 16 18 Rate Blood Pressure 94/47 (mmHg) O2 Sat by Pulse 98 Oximetry Oxygen Devices in Use Now: None Appearance: NAD Eyes: No Scleral Icterus, PERRLA Ears/Nose/Mouth/Throat: Clear Oropharnyx, Mucous Membranes Moist Neck: NL Appearance and Movements; NL JVP, Trachea Midline Respiratory: Symmetrical Chest Expansion and Respiratory Effort, Clear to Auscultation Cardiovascular: RRR Abdominal: NL Sounds; No Tenderness; No Distention, No Hepatosplenomegaly Extremities: - - 2+ LE edema Neurological: Alert and Oriented x 3, - - difficult hearing Result Diagrams: 05/23/17 07:21 05/23/17 05:20 Additional Lab and Data: Lab Results 05/21/17 05/21/17 05/21/17 Range/Units 19:20 19:20 19:20 WBC 9.4 (3.5-10.8) 10^3/ul RBC 3.69 L (4.0-5.4) 10^6/ul Hgb 11.4 L (12.0-16.0) g/dl Hct 35 (35-47) % MCV 95 (80-97) fL MCH 31 (27-31) pg MCHC 33 (31-36) g/dl RDW 18 H (10.5-15) % Plt Count 365 (150-450) 10^3/ul MPV 7 L (7.4-10.4) um3 Neut % (Auto) 74.2 (38-83) % Lymph % (Auto) 16.7 L (25-47) % [place] % (Auto) 8.0 (1-9) % Eos % (Auto) 0.4 (0-6) % Baso % (Auto) 0.7 (0-2) % Absolute Neuts (auto) 7.0 (1.5-7.7) 10^3/ul Absolute Lymphs (auto) 1.6 (1.0-4.8) 10^3/ul Absolute Monos (auto) 0.8 (0-0.8) 10^3/ul Absolute Eos (auto) 0 (0-0.6) 10^3/ul Absolute Basos (auto) 0.1 (0-0.2) 10^3/ul Absolute Nucleated RBC 0 10^3/ul Nucleated RBC % 0 ESR 16 (0-40) mm/Hr INR (Anticoag Therapy) (0.89-1.11) APTT (26.0-36.3) seconds D-Dimer, Quantitative (Less Than 230) ng/mL Sodium 127 L (133-145) mmol/L Potassium 3.2 L (3.5-5.0) mmol/L Chloride 91 L (101-111) mmol/L Carbon Dioxide 24 (22-32) mmol/L Anion Gap 12 H (2-11) mmol/L BUN 27 H (6-24) mg/dL Creatinine 0.94 (0.51-0.95) mg/dL Est GFR ( Amer) 72.1 (>60) Est GFR (Non-Af Amer) 56.1 (>60) BUN/Creatinine Ratio 28.7 H (8-20) Glucose 83 (70-100) mg/dL Lactic Acid 1.2 (0.5-2.0) mmol/L Calcium 9.7 (8.6-10.3) mg/dL Magnesium 2.0 (1.9-2.7) mg/dL Total Bilirubin 1.10 H (0.2-1.0) mg/dL AST 29 (13-39) U/L ALT 14 (7-52) U/L Alkaline Phosphatase 82 (34-104) U/L Total Creatine Kinase 41 (10-223) U/L CK-MB (CK-2) 2.6 (0.6-6.3) ng/mL Troponin I 0.05 H* (<0.04) ng/mL C-Reactive Protein 22.02 H (< 5.00) mg/L B-Natriuretic Peptide ( - 100) pg/mL Total Protein 5.9 L (6.4-8.9) g/dL Albumin 3.1 L (3.2-5.2) g/dL Globulin 2.8 (2-4) g/dL Albumin/Globulin Ratio 1.1 (1-3) TSH 14.01 H (0.34-5.60) mcIU/mL Free T4 0.60 L (0.61-1.12) ng/dL Free T3 2.90 (2.5-3.9) pg/mL 05/21/17 05/21/17 Range/Units 19:20 19:20 WBC (3.5-10.8) 10^3/ul RBC (4.0-5.4) 10^6/ul Hgb (12.0-16.0) g/dl Hct (35-47) % MCV (80-97) fL MCH (27-31) pg MCHC (31-36) g/dl RDW (10.5-15) % Plt Count (150-450) 10^3/ul MPV (7.4-10.4) um3 Neut % (Auto) (38-83) % Lymph % (Auto) (25-47) % [place] % (Auto) (1-9) % Eos % (Auto) (0-6) % Baso % (Auto) (0-2) % Absolute Neuts (auto) (1.5-7.7) 10^3/ul Absolute Lymphs (auto) (1.0-4.8) 10^3/ul Absolute Monos (auto) (0-0.8) 10^3/ul Absolute Eos (auto) (0-0.6) 10^3/ul Absolute Basos (auto) (0-0.2) 10^3/ul Absolute Nucleated RBC 10^3/ul Nucleated RBC % ESR (0-40) mm/Hr INR (Anticoag Therapy) 1.14 H (0.89-1.11) APTT 30.9 (26.0-36.3) seconds D-Dimer, Quantitative 280 H (Less Than 230) ng/mL Sodium (133-145) mmol/L Potassium (3.5-5.0) mmol/L Chloride (101-111) mmol/L Carbon Dioxide (22-32) mmol/L Anion Gap (2-11) mmol/L BUN (6-24) mg/dL Creatinine (0.51-0.95) mg/dL Est GFR ( Amer) (>60) Est GFR (Non-Af Amer) (>60) BUN/Creatinine Ratio (8-20) Glucose (70-100) mg/dL Lactic Acid (0.5-2.0) mmol/L Calcium (8.6-10.3) mg/dL Magnesium (1.9-2.7) mg/dL Total Bilirubin (0.2-1.0) mg/dL AST (13-39) U/L ALT (7-52) U/L Alkaline Phosphatase (34-104) U/L Total Creatine Kinase (10-223) U/L CK-MB (CK-2) (0.6-6.3) ng/mL Troponin I (<0.04) ng/mL C-Reactive Protein (< 5.00) mg/L B-Natriuretic Peptide 226 H ( - 100) pg/mL Total Protein (6.4-8.9) g/dL Albumin (3.2-5.2) g/dL Globulin (2-4) g/dL Albumin/Globulin Ratio (1-3) TSH (0.34-5.60) mcIU/mL Free T4 (0.61-1.12) ng/dL Free T3 (2.5-3.9) pg/mL Microbiology and Other Data: Microbiology 05/22/17 09:00 Aerobic Blood Culture - Preliminary Blood Venous No Growth Day 1 Anaerobic Blood Culture - Preliminary No Growth Day 1 Assess/Plan/Problems-Billing Assessment: 87 yo F h/o CHF, PPM/ICD, hypothyroidism, depression, p/w LE swelling, weakness , and progressive dysphagia - Patient Problems (1) Dysphagia Comment: 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 Associated with dramatic weight loss over several months. Decreased appatite Poor swallow function on evaluation today however no remedy to underlying cause. NPO is not a tenable solution Pt would like to advance diet. She and her family are aware of risks. They will determine how far to advance diet in accordance with patient's goals of care (2) Edema Comment: TTE with mildly reduced LVEF and no evidence of diastolic HF to evidence decompensated HF pHTN on TTE could be accountable for increasing edema 2 hospital stays prior to this for dehydration where pt receive IVF. I suuspect vivek eof the (chronic) LE edema is worsened after IVF recently Appears extravascularly overloaded and intravascularly dry Wrap LE. Currently wraps are low but need to be extended above knees elevate legs strict I/O, daily weights improved (3) Hypothyroidism Comment: continue home med (4) Weight loss Comment: continued decline likely in part due to progressive dysphagia long conversation with re: goals of care I suspect functional decline will continue and relayed to pt and family (5) Hyponatremia Comment: suspect hypovolemic hyponatremia 1L normal saline (again) today (6) DVT prophylaxis Comment: d/c xarelto. Was on since previous orthopedic surgery in January
[2017-05-23] MEDS: Famotidine TAB* 20 MG PO SCH (20:16)
[2017-05-23] MEDS: Mirtazapine TAB* 15 MG PO SCH (20:16)
[2017-05-24] MEDS ORDERED: NS 0.9% 1000 ML* 1,000 ML IV SCH (08:15)
[2017-05-24] MEDS: BuPROPion XL* 150 MG TAB.XL PO SCH (08:57)
[2017-05-24] MEDS: Liothyronine TAB* 5 MCG PO SCH (08:57)
[2017-05-24 11:01] VITALS: BP 102/50
[2017-05-24 11:10] LABS: Hematocrit 27 % (35-47); Hemoglobin 9.1 g/dl (12.0-16.0); Mean Corpuscular HGB Conc 33 g/dl (31-36); Mean Corpuscular Hemoglobin 32 pg (27-31); Mean Corpuscular Volume 96 fL (80-97); Mean Platelet Volume 7 um3 (7.4-10.4); Red Blood Count 2.82 10^6/ul (4.0-5.4); Red Cell Distribution Width 18 % (10.5-15); White Blood Count 8.1 10^3/ul (3.5-10.8)
[2017-05-24 11:18] LABS: BUN/Creatinine Ratio 23.6 (8-20); Calcium 8.1 mg/dL (8.6-10.3); EGFR African American 133.8 (>60); EGFR Non-African American 104.1 (>60)
[2017-05-24 11:20] LABS: Potassium 3.4 mmol/L (3.5-5.0)
--- NOTE | 2017-05-24 23:38 | DS ---
DISCHARGE SUMMARY: DATE OF ADMISSION: 05/21/17 DATE OF DISCHARGE: 05/24/17 PRIMARY CARE PROVIDER: None. PRIMARY DIAGNOSIS: Dehydration. SECONDARY DIAGNOSES: 1. Lower extremity swelling. 2. History of ICD placement. 3. Hypothyroidism. 4. Depression. 5. Hyponatremia. 6. Dysphagia. 7. Protein-calorie malnutrition. MEDICATIONS ON DISCHARGE: 1. Ranitidine 300 mg daily. 2. Coenzyme Q10 30 mg daily. 3. Mirtazapine 50 mg at bedtime. 4. Bupropion 150 mg daily. 5. Cytomel 5 mcg twice daily. 6. Acetaminophen 650 mg every 4 hours as needed for pain or fever. PERTINENT LABORATORY DATA: CRP on presentation 22. Sodium on presentation 127 , on discharge 132. TSH 14, free T4 0.6, free T3 2.90. ESR 16. PERTINENT IMAGING DATA: Transthoracic echocardiogram - Impression: Estimated LVEF at 55% to 60%, global left ventricular wall motion and contractility were within normal limits. Left ventricular chamber size is decreased. There is mild to moderate , mild to moderate MR, moderate TR, and evidence of mild pulmonary hypertension. Videofluoroscopic swallow evaluation - Impression: Severe oropharyngeal dysphagia. There was a large amount of residual material after each swallow present at the base of the tongue and the vallecula. Patient aspirated both thin and thick liquids, although did better with thick liquids. The patient had a weak cough and also had difficulty clearing residual contrast after each swallow. HISTORY OF PRESENT ILLNESS AND HOSPITAL COURSE: This is an 87-year-old female recently moved to [place] to live with her family from [place]. She was previously in relatively good health until suffering a fall complicated by femoral fracture. Since that time, several months prior, she suffered increasing decline in strength and mental status. 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 Her dysphagia has been progressive and now on her speech evaluation, NPO recommendation was made. The patient has lost over 15 pounds in the last 1 to 2 months secondary to decreased appetite as well as noted dysphagia. She was brought to the hospital because of increased weakness, increased fluid in her legs as well as reportedly low oxygen at home, although no hypoxia was noted during this hospital stay either on presentation or on admission. Transthoracic echocardiogram did not indicate evidence of systolic or diastolic heart failure. In the previous month in the setting of her dehydration as well as falls and fractures, she has been hospitalized, received IV fluids after which her lower extremities have been increasingly swollen. I think she has been third spacing fluid that she has been receiving on multiple hospital stays in conjunction with poor activity, poor muscle tone, poor venous tone as well as low protein. During this hospital stay, her hyponatremia improved with normal saline. Her blood pressure improved with normal saline. Her kidney function represented GFR of 56 on presentation, improved to 104 with normal saline. However, her strength did not improve and she was still unable to eat. She did not tolerate thickened liquids or pureed foods. She frequently declines to eat them. At this point, it's a catch 22, the patient declines to eat foods that will minimize her risk of aspiration; however, requires increased protein in order to maintain current weight and guard against additional severe protein-calorie malnutrition. I had a long conversation with the patient as well as her son and daughter. I expect her weakness and dehydration to continue in the setting of inability to swallow as well as decreased appetite. I suspect that she will continue to decline in strength and mental status. I recommended hospice evaluation. They currently live in [facility] and I have given them the number of the [facility] in [place], [place]. They seem interested and will consider it on discharge. We discussed at length goals of care, which at this point involves living another week until the of her granddaughter. At that time, it is unclear if she would choose to return to the hospital for rehydration as I expect dehydration to develop again or sign on to a hospice and remain at home. There were no complications during this hospital stay. Her lower extremities were wrapped with Christophe bandages and her lower extremity swelling improved. She did have some tachycardia during the course of the hospital stay that improved with normal saline; however, did not resolve. Additional fluid was not given on the day of discharge and she started to develop faint rales in bilateral bases. Reasons to return to the hospital include recurrent or worsening symptoms unless the patient deems her level of care would be to remain comfortable at home and for additional hospital stay. TIME SPENT: Greater than 75 minutes was spent on discharge of this patient; greater than half was spent [id number] with the patient and her family. [id number]/[facility] #: [id number] [facility]
== END 2017-05-24 15:50 | disposition home or self-care (01) | DRG 641 ==
LOC: ED 15:21 → MEDTELE 20:49
PROVIDERS: ADMIT Hospitalist; ATTEND Internal Medicine
DX: E86.0 Dehydration (principal); I95.9 Hypotension, unspecified; E46 Unspecified protein-calorie malnutrition; R13.19 Other dysphagia; N28.9 Disorder of kidney and ureter, unspecified; E03.9 Hypothyroidism, unspecified; F32.9 Major depressive disorder, single episode, unspecified; E87.1 Hypo-osmolality and hyponatremia; M79.89 Other specified soft tissue disorders; M25.78 Osteophyte, vertebrae; K21.9 Gastro-esophageal reflux disease without esophagitis; Z96.642 Presence of left artificial hip joint; Z96.651 Presence of right artificial knee joint; Z68.21 Body mass index [BMI] 21.0-21.9, adult; Z85.3 Personal history of malignant neoplasm of breast; Z95.810 Presence of automatic (implantable) cardiac defibrillator
CPT/HCPCS: 36415; 71010; 74230; 80048; 80053; 82024; 82533; 82550; 82553; 83605; 83735; 83880; 83930; 84439; 84443; 84481; 84484; 85025; 85379; 85610; 85652; 85730; 86140; 87040; 87077; 87150; 87186; 87205; 93005; 93306; 93970; A9270-GY